=== PATIENT | male | born 1980 | race Caucasian/White ===

== ENCOUNTER 2025-07-27 09:41 | Outpatient (CLI) | payer OTHER, SELFPAY ==
--- NOTE | 2025-07-27 09:54 | ECHO_ITS ---
Patient Info Name: Aaron Jaffe Age: 45 years : 1980 Gender: Male Ht: 70 in Wt: 255 lbs BSA: 2.43 m2 HR: 82 bpm BP: 166 / 113 mmHg Technical Quality: Good Exam Date: 07/27/2025 10:11 AM Patient Status: O Admit Date: 07/27/2025 Exam Type: CA echo doppler color flow Complete two-dimensional, color flow and Doppler transthoracic echocardiogram is performed. Sheriffs: Lara Rehman Attending Provider: Mone Vidal Summary 1. Complete two-dimensional, color flow and Doppler transthoracic echocardiogram is performed. 2. Technically suboptimal study due to poor sonographic images. 3. Left ventricular chamber dimension is moderately enlarged. 4. Left ventricular systolic function is normal, estimated at 60-65. 5. The left ventricular diastolic function is normal. 6. E/e' 7 is not elevated. 7. Left atrial chamber dimension is mildly enlarged. 8. The aortic valve is not well visualized. Cannot determine number of aortic valve leaflets. 9. The mitral valve has not well visualized leaflets, a mildly calcified annulus and moderately posterior prolapse. 10. There is mild to moderate mitral valve regurgitation. Left Ventricle E/e' 7 is not elevated. Left ventricular chamber dimension is moderately enlarged. Left ventricular systolic function is normal, estimated at 60-65. The left ventricular diastolic function is normal. Technically suboptimal study due to poor sonographic images. Right Ventricle Right ventricular chamber dimension is normal. Right ventricular systolic function is normal and with normal TAPSE 2.7 cm. Left Atria Left atrial chamber dimension is mildly enlarged. Right Atria Right atrial chamber dimension is normal. Aortic Valve The aortic valve is not well visualized. Cannot determine number of aortic valve leaflets. There is no aortic valve stenosis. There is no aortic valve regurgitation. Pulmonic Valve There is no pulmonic regurgitation. Mitral Valve The mitral valve has not well visualized leaflets, a mildly calcified annulus and moderately posterior prolapse. There is no mitral valve stenosis. There is mild to moderate mitral valve regurgitation. Tricuspid Valve There is no tricuspid valve regurgitation. Pericardium/Pleural There is no pericardial effusion. Inferior Vena Cava Normal inferior vena cava with >50% collapse upon inspiration consistent with normal right atrial pressure, 5 mmHg. Aorta The aortic root size at the sinus of Valsalva is normal. Left Ventricular Outflow Tract Name Value Normal LVOT 2D LVOT Diameter 2.0 cm LVOT Doppler LVOT Peak Velocity 94 cm/s LVOT Peak Gradient 4 mmHg LVOT Mean Gradient 2 mmHg LVOT VTI 16 cm LVOT Stroke Volume 53 ml LVOT CO 4.4 l/min LVOT CI 1.8 l/min/m2 Pulmonic Valve Name Value Normal RVOT Doppler RVOT Peak Velocity 74 cm/s RVOT Peak Gradient 2 mmHg PV Doppler PV Peak Velocity 96 cm/s PV Peak Gradient 4 mmHg Mitral Valve Name Value Normal MV Doppler MV Peak Gradient 6 mmHg MV Mean Gradient 3 mmHg MV Area (Cont Eq VTI) 1.9 cm2 MV Diastolic Function MV E Peak Velocity 100 cm/s MV A Peak Velocity 72 cm/s MV E/A 1.4 MV Decel Time (PW) 202 ms MV Annular TDI MV E/e' (Septal) 8.2 MV E/e' (Lateral) 6.4 MV E/e' (Average) 7.3 Tricuspid Valve Name Value Normal Estimated PAP/RSVP RA Pressure 5 mmHg <=5 Aortic Valve Name Value Normal AV Doppler AV Peak Velocity 124 cm/s AV Peak Gradient 6 mmHg AV Area (Cont Eq Teo) 2.5 cm2 AV DI (Teo) 0.76 AV Regurgitation 2D LVOT Area 3.3 cm2 Ventricles Name Value Normal LV Dimensions 2D/MM IVS Diastolic Thickness (2D) 1.2 cm 0.6-1.0 LVID Diastole (2D) 6.0 cm 4.2-5.8 LVIW Diastolic Thickness (2D) 1.1 cm 0.6-1.0 LVID Systole (2D) 4.3 cm 2.5-4.0 LVOT Diameter 2.0 cm LV Mass (2D Cubed) 297.41 g 88.00-224.00 LV Mass Index (2D Cubed) 122 g/m2 49-115 Relative Wall Thickness (2D) 0.38 <=0.42 LV Fractional Shortening/Ejection Fraction 2D/MM LV Fractional Shortening (2D) 29 % 25-43 LV EF (2D Teichholz) 56 % LV Diastolic Volume (4C MOD) 178 ml LV EF (4C MOD) 61 % LV Diastolic Volume (2C MOD) 177 ml LV EF (2C MOD) 56 % LV Diastolic Volume (BP MOD) 181 ml 62-150 LV Diastolic Volume Index (BP MOD) 74 ml/m2 34-74 LV Systolic Volume (BP MOD) 74 ml 21-61 LV Systolic Volume Index (BP MOD) 30 ml/m2 11-31 LV EF (BP MOD) 59 % 52-72 LV Diastolic Length (4C) 10.7 cm LV Systolic Length (4C) 8.8 cm LV Stroke Volume (4C MOD) 109 ml Atria Name Value Normal LA Dimensions LA Volume (4C A-L) 58 ml LA Volume (BP A-L) 57 ml RA Dimensions RA Area (4C) 12.9 cm2 <=18.0 Report Signatures
== END 2025-07-27 09:42 | disposition home or self-care (01) ==
PROVIDERS: PCP Family Medicine; Visit Provider Family Medicine
DX: R01.1 Cardiac murmur, unspecified (principal); I34.0 Nonrheumatic mitral (valve) insufficiency
CPT/HCPCS: 93306